=== PATIENT | male | born 1950 | race Caucasian/White ===

== ENCOUNTER 2020-01-08 08:15 | Inpatient (IN) | payer BC, MEDICARE, OTHER ==
[2020-01-08 08:47] LABS: #Eosinphils 0.1 thou/uL (0.0-0.7); #Lymphocytes 0.7 thou/uL (1.20-3.40); #Monocytes 0.4 thou/uL (0.11-0.59); #Neutrophils 5.6 thou/uL (1.40-6.50); %Basophils 0.1 % (0.0-1.0); %Eosinophils 1.4 % (0.0-10.0); %Lymphocytes 10.6 % (21.0-51.0); %Monocytes 6.3 % (0.0-10.0); %Neutrophils 81.6 % (42.0-75.0); Mean Corpuscular HGB CONC 34.4 g/dL (32.0-36.0); Mean Platelet Volume 8.4 fL (7.4-10.4); Platelet Count 138 thou/uL (130-400); RBC Distribution Width 11.5 % (11.5-14.5); Red Blood Cell (RBC) Count 4.84 mill/uL (4.70-6.10); White Blood Cell (WBC) Count 6.9 thou/uL (4.8-10.8)
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
[2020-01-08 09:08] LABS: ALT (SGPT) 14 U/L (8-55); AST (SGOT) 18 U/L (5-34); Albumin 4.2 g/dL (3.4-4.8); Alkaline Phosphatase 68 U/L (40-110); Anion Gap 12 mmol/L (10-20); BUN (Urea Nitrogen) 19 mg/dL (8.4-25.7); Bilirubin, Total 0.8 mg/dL (0.2-1.2); Calc. Creatinine Clearance 0 mL/min (70-130); Calcium 9.2 mg/dL (7.8-10.44); Carbon Dioxide 26 mmol/L (23-31); Chloride 105 mmol/L (98-107); Estimated GFR-MDRD 56; Globulin 2.9 g/dL (2.4-3.5); Glucose 141 mg/dL (80-115); Potassium 4.6 mmol/L (3.5-5.1); Protein, Total 7.1 g/dL (5.8-8.1); Sodium 138 mmol/L (136-145)
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
[2020-01-08] MEDS ORDERED: Aspirin Chewable 81 MG TAB ONE (10:17)
[2020-01-08] MEDS ORDERED: Boostrix 0.5 ML (Tdap) VIAL ONE (10:17)
[2020-01-08] MEDS ORDERED: Senokot S 8.6-50 MG TAB PO PRN (11:58)
[2020-01-08 13:42] LABS: Troponin I 0.014 ng/mL (< 0.028)
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
[2020-01-08] MEDS ORDERED: Iopamidol-370 76% 500 ML 1 ML ONE (13:57)
--- NOTE | 2020-01-08 15:41 | PDOC.EEG ---
Neurology EEG Report - Report Report: This EEG was performed using 24 channel Synthace video digital EEG machine with 24 disc electrodes. Background: The posterior background rhythm is 9-10 Hz. Bioccipital symmetric driving response seen with photic stimulation. Hyperventilation: Not performed. Sleep: Drowsiness and sleep are observed EEG diagnosis: Normal awake, drowsy and sleep EEG.
[2020-01-08 17:36] LABS: Troponin I 0.024 ng/mL (< 0.028)
[2020-01-08] MEDS ORDERED: Simvastatin 10 MG TAB PO SCH (21:00)
[2020-01-08] MEDS ORDERED: Tamsulosin HCl 0.4 MG CAP PO SCH (21:00)
[2020-01-08] MEDS ORDERED: Acetaminophen 325 MG TAB ONE (21:02)
[2020-01-08 21:31] LABS: Troponin I 0.017 ng/mL (< 0.028)
[2020-01-08 23:48] VITALS: BMI 29.0
[2020-01-09 04:17] LABS: #Eosinphils 0.2 thou/uL (0.0-0.7); #Lymphocytes 1.3 thou/uL (1.20-3.40); #Monocytes 0.7 thou/uL (0.11-0.59); #Neutrophils 5.2 thou/uL (1.40-6.50); %Basophils 0.1 % (0.0-1.0); %Eosinophils 2.1 % (0.0-10.0); %Lymphocytes 17.7 % (21.0-51.0); %Monocytes 9.1 % (0.0-10.0); %Neutrophils 71.1 % (42.0-75.0); Hemoglobin 14.8 g/dL (14.0-18.0); Mean Corpuscular HGB CONC 34.7 g/dL (32.0-36.0); Mean Corpuscular Volume 95.1 fL (78.0-98.0); Mean Platelet Volume 8.6 fL (7.4-10.4); Platelet Count 131 thou/uL (130-400); RBC Distribution Width 11.7 % (11.5-14.5); Red Blood Cell (RBC) Count 4.47 mill/uL (4.70-6.10); White Blood Cell (WBC) Count 7.4 thou/uL (4.8-10.8)
[2020-01-09 04:39] LABS: Anion Gap 11 mmol/L (10-20); BUN (Urea Nitrogen) 20 mg/dL (8.4-25.7); Calc. Creatinine Clearance 81 mL/min (70-130); Calcium 9.1 mg/dL (7.8-10.44); Carbon Dioxide 26 mmol/L (23-31); Chloride 104 mmol/L (98-107); Estimated GFR-MDRD 55; Glucose 109 mg/dL (80-115); Potassium 3.9 mmol/L (3.5-5.1); Sodium 137 mmol/L (136-145)
[2020-01-09] MEDS ORDERED: Aspirin 81 mg Enteric Coated Tablet PO SCH (09:00)
[2020-01-09] MEDS ORDERED: buPROPion 75 MG TAB PO SCH (09:00)
[2020-01-09] MEDS: Enoxaparin Sodium 40 MG/0.4 ML SYRINGE SC SCH (10:01)
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
[2020-01-09 13:55] LABS: SARS-CoV-2 MS2 Positive; SARS-CoV-2 N Gene Negative; SARS-CoV-2 S Gene Negative; SARS-CoV-2 by NAA Not Detected (NotDetected); SARS-CoV-2 orf1ab Negative
[2020-01-09] MEDS ORDERED: Communication Order-Pharmacy FS SCH (14:30)
[2020-01-09] MEDS ORDERED: Furosemide 20 MG TAB PO SCH (14:30)
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
[2020-01-09] MEDS: Atorvastatin Calcium 40 MG TAB PO SCH (19:50)
[2020-01-09] MEDS: Acetaminophen 325 MG TAB PO PRN (19:50)
[2020-01-10 04:45] LABS: Cardiac Risk 3.4 (Less than 4.5)
[2020-01-10] MEDS: Losartan 25 MG TAB PO SCH (08:52)
[2020-01-10] MEDS: Furosemide 20 MG TAB PO SCH (08:52)
[2020-01-10] MEDS: Aspirin 81 mg Enteric Coated Tablet PO SCH (08:52)
[2020-01-10] MEDS: Tamsulosin HCl 0.4 MG CAP PO SCH (08:52)
[2020-01-10] MEDS: buPROPion 75 MG TAB PO SCH (08:52)
[2020-01-10] MEDS: Enoxaparin Sodium 40 MG/0.4 ML SYRINGE SC SCH (08:53)
--- NOTE | 2020-01-10 12:31 | PDOC.HOSPP ---
- Subjective Encounter Date: 01/10/20 Encounter Time: 12:30 Subjective: Mr. Esparza was seen today in follow-up of syncope. Other than having some chest wall soreness, he feels fine. He denies chest pain or shortness of breath. - Objective Vital Signs & Weight: Vital Signs (12 hours) Temp Pulse Resp BP BP Pulse Ox 01/10/20 11:13 97.9 F 53 L 18 124/69 96 01/10/20 07:19 98.2 F 61 18 134/69 96 01/10/20 03:30 97.5 F L 53 L 18 144/77 H 95 Weight Weight 228 lb I&O: 01/09/20 01/10/20 01/11/20 06:59 06:59 06:59 Intake Total 480 120 Balance 480 120 Result Diagrams: 01/09/20 04:03 01/09/20 04:03 Hospitalist ROS - Medication Medications: Active Medications Generic Name Dose Route Start Last Admin Trade Name Freq PRN Reason Stop Dose Admin Acetaminophen 650 mg 01/08/20 11:58 01/09/20 19:50 Acetaminophen 325 Mg Tab PO 650 mg Q6H PRN Administration Headache/Fever/Mild Pain (1-3) Aspirin 81 mg 01/10/20 09:00 01/10/20 08:52 Aspirin 81 Mg Enteric Coated Tablet PO 81 mg DAILY SYLWIA Administration Atorvastatin Calcium 80 mg 01/09/20 21:00 01/09/20 19:50 Atorvastatin Calcium 40 Mg Tab PO 80 mg HS SYLWIA Administration Bupropion HCl 150 mg 01/10/20 09:00 01/10/20 08:52 Bupropion 75 Mg Tab PO 150 mg DAILY SYLWIA Administration Enoxaparin Sodium 40 mg 01/09/20 09:00 01/10/20 08:53 Enoxaparin Sodium 40 Mg/0.4 Ml Syringe SC 01/10/20 23:00 40 mg 0900 SYLWIA Administration Furosemide 20 mg 01/10/20 09:00 01/10/20 08:52 Furosemide 20 Mg Tab PO 20 mg DAILY SYLWIA Administration Losartan Potassium 50 mg 01/10/20 09:00 01/10/20 08:52 Losartan 25 Mg Tab PO 50 mg DAILY SYLWIA Administration Metoprolol Succinate 100 mg 01/10/20 09:00 01/10/20 08:53 Metoprolol Succinate Xl 100 Mg Tab PO 100 mg DAILY SYLWIA Administration Tamsulosin HCl 0.4 mg 01/10/20 09:00 01/10/20 08:52 Tamsulosin Hcl 0.4 Mg Cap PO 0.4 mg DAILY SYLWIA Administration - Exam Eye: PERRL, anicteric sclera Eye - other findings: + injected sclera Heart: RRR, no murmur, no gallops, no rubs, normal peripheral pulses Respiratory: CTAB, no wheezes, no rales, no ronchi, normal chest expansion, no tachypnea, normal percussion Gastrointestinal: soft, non-tender, non-distended, normal bowel sounds, no palpable masses, no hepatomegaly Extremities: no cyanosis, no edema Hosp A/P (1) Syncope Code(s): R55 - SYNCOPE AND COLLAPSE Status: Acute (2) CAD (coronary artery disease) Code(s): I25.10 - ATHSCL HEART DISEASE OF [place] CORONARY ARTERY W/O ANG PCTRS Status: Acute (3) Hypertension Code(s): I10 - ESSENTIAL (PRIMARY) HYPERTENSION Status: Chronic (4) Bradycardia Code(s): R00.1 - BRADYCARDIA, UNSPECIFIED Status: Chronic - Plan * Syncope- ? plan is for cardiac cath tomorrow * Continue to monitor on Telemetry * Probable undiagnosed sleep apnea- discussed with the patient- he needs to follow-up and have the out patient sleep study done * HTN- blood pressure is stable
[2020-01-10] MEDS: Acetaminophen 325 MG TAB PO PRN (20:22)
[2020-01-10] MEDS: Atorvastatin Calcium 40 MG TAB PO SCH (20:23)
[2020-01-11] MEDS ORDERED: Sodium Chloride 0.9% 1,000 ML IV SCH ×2 (06:00→12:07)
[2020-01-11] MEDS: Aspirin 81 mg Enteric Coated Tablet PO SCH (06:01)
[2020-01-11] MEDS: Furosemide 20 MG TAB PO SCH (06:02)
[2020-01-11] MEDS: Losartan 25 MG TAB PO SCH (06:02)
[2020-01-11] MEDS: buPROPion 75 MG TAB PO SCH (06:02)
[2020-01-11] MEDS: Tamsulosin HCl 0.4 MG CAP PO SCH (06:02)
[2020-01-11] MEDS: Acetaminophen 325 MG TAB PO PRN (06:07)
[2020-01-11] MEDS ORDERED: Iopamidol 370 76% 100 ML VIAL ONE (09:41)
[2020-01-11] MEDS ORDERED: Iopamidol 370 76% 50 ML VIAL FS ONE (09:41)
[2020-01-11] MEDS ORDERED: Heparin 0 ML ONE (10:13)
[2020-01-11] MEDS ORDERED: Heparin 10,000 UNITS/ 10 ML VIAL ONE (10:30)
[2020-01-11] MEDS ORDERED: Midazolam HCl 2 mg/2 ml Vial ONE (11:01)
[2020-01-11] MEDS ORDERED: Fentanyl 100 MCG/2 ML VIAL ONE (11:01)
[2020-01-11] MEDS ORDERED: Protamine Sulfate 50 MG/5 ML VIAL ONE (11:37)
[2020-01-11] MEDS ORDERED: Acetaminophen/Codeine 30-300mg Tablet PO PRN (12:07)
[2020-01-11] MEDS ORDERED: Sodium Chloride 0.9% 200 ML IV PRN (12:07)
[2020-01-11] MEDS ORDERED: Nitroglycerin 0.4 MG TAB (25 Tab Bottle) SL PRN (12:07)
[2020-01-11] MEDS: Acetaminophen/Codeine 30-300mg Tablet PO PRN ×2 (16:56→21:13)
[2020-01-11 18:23] LABS: #Eosinphils 0.2 thou/uL (0.0-0.7); #Lymphocytes 1.2 thou/uL (1.20-3.40); #Monocytes 0.6 thou/uL (0.11-0.59); #Neutrophils 3.6 thou/uL (1.40-6.50); %Basophils 0.2 % (0.0-1.0); %Lymphocytes 21.9 % (21.0-51.0); %Neutrophils 64.8 % (42.0-75.0); Hemoglobin 16.1 g/dL (14.0-18.0); Mean Corpuscular HGB CONC 34.5 g/dL (32.0-36.0); Mean Corpuscular Hemoglobin 32.6 pg (27.0-31.0); Mean Corpuscular Volume 94.6 fL (78.0-98.0); Mean Platelet Volume 8.4 fL (7.4-10.4); Platelet Count 170 thou/uL (130-400); RBC Distribution Width 11.6 % (11.5-14.5); Red Blood Cell (RBC) Count 4.96 mill/uL (4.70-6.10); White Blood Cell (WBC) Count 5.5 thou/uL (4.8-10.8)
[2020-01-11 19:05] LABS: Anion Gap 16 mmol/L (10-20); BUN (Urea Nitrogen) 20 mg/dL (8.4-25.7); Calc. Creatinine Clearance 75 mL/min (70-130); Calcium 9.5 mg/dL (7.8-10.44); Carbon Dioxide 26 mmol/L (23-31); Chloride 100 mmol/L (98-107); Estimated GFR-MDRD 52; Glucose 105 mg/dL (80-115); Sodium 138 mmol/L (136-145)
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
[2020-01-11] MEDS: Atorvastatin Calcium 40 MG TAB PO SCH (21:13)
[2020-01-12 05:01] LABS: Anion Gap 14 mmol/L (10-20); BUN (Urea Nitrogen) 24 mg/dL (8.4-25.7); Calc. Creatinine Clearance 85 mL/min (70-130); Calcium 9.2 mg/dL (7.8-10.44); Carbon Dioxide 23 mmol/L (23-31); Chloride 103 mmol/L (98-107); Estimated GFR-MDRD 60; Glucose 98 mg/dL (80-115); Sodium 136 mmol/L (136-145)
[2020-01-12] MEDS ORDERED: Propofol 1,000 MG/100 ML VIAL IV ONE (06:48)
[2020-01-12] MEDS ORDERED: Fentanyl 100 MCG/2 ML VIAL ONE ×2 (06:49→10:04)
--- NOTE | 2020-01-12 07:45 | PDOC.HOSPP ---
- Objective Vital Signs & Weight: Vital Signs (12 hours) Temp Pulse Resp BP Pulse Ox 01/12/20 07:02 98.1 F 56 L 18 121/63 93 L 01/12/20 03:02 98.4 F 53 L 16 143/66 H 95 Weight Weight 227 lb I&O: 01/11/20 01/12/20 01/13/20 06:59 06:59 06:59 Intake Total 1270 2140 Output Total 1000 1550 Balance 270 590 Result Diagrams: 01/11/20 18:11 01/12/20 04:09 Hospitalist ROS - Medication Medications: Active Medications Generic Name Dose Route Start Last Admin Trade Name Freq PRN Reason Stop Dose Admin Acetaminophen 650 mg 01/08/20 11:58 01/11/20 06:07 Acetaminophen 325 Mg Tab PO 650 mg Q6H PRN Administration Headache/Fever/Mild Pain (1-3) Acetaminophen/Codeine Phosphate 1 tab 01/11/20 12:07 01/11/20 21:13 Acetaminophen/Codeine 30-300mg Tablet PO 1 tab Q4H PRN Administration Mild Pain (1-3) Aspirin 81 mg 01/10/20 09:00 01/11/20 06:01 Aspirin 81 Mg Enteric Coated Tablet PO 81 mg DAILY SYLWIA Administration Atorvastatin Calcium 80 mg 01/09/20 21:00 01/11/20 21:13 Atorvastatin Calcium 40 Mg Tab PO 80 mg HS SYLWIA Administration Bupropion HCl 150 mg 01/10/20 09:00 01/11/20 06:02 Bupropion 75 Mg Tab PO 150 mg DAILY SYLWIA Administration Furosemide 20 mg 01/10/20 09:00 01/11/20 06:02 Furosemide 20 Mg Tab PO 20 mg DAILY SYLWIA Administration Metoprolol Succinate 100 mg 01/10/20 09:00 01/11/20 09:45 Metoprolol Succinate Xl 100 Mg Tab PO Not Given DAILY SYLWIA Sodium Chloride 10 ml 01/11/20 21:00 01/11/20 21:13 Flush - Normal Saline 10 Ml Syringe IVF 10 ml Q12HR SYLWIA Administration Tamsulosin HCl 0.4 mg 01/10/20 09:00 01/11/20 06:02 Tamsulosin Hcl 0.4 Mg Cap PO 0.4 mg DAILY SYLWIA Administration Hosp A/P (1) Syncope Code(s): R55 - SYNCOPE AND COLLAPSE Status: Acute (2) CAD (coronary artery disease) Code(s): I25.10 - ATHSCL HEART DISEASE OF [place] CORONARY ARTERY W/O ANG PCTRS Status: Acute (3) Hypertension Code(s): I10 - ESSENTIAL (PRIMARY) HYPERTENSION Status: Chronic (4) Bradycardia Code(s): R00.1 - BRADYCARDIA, UNSPECIFIED Status: Chronic - Plan * Syncope- ? plan is for cardiac cath tomorrow * Continue to monitor on Telemetry * Probable undiagnosed sleep apnea- discussed with the patient- he needs to follow-up and have the out patient sleep study done * HTN- blood pressure is stable
[2020-01-12] MEDS ORDERED: Ondansetron HCl/PF 4 MG/2 ML Vial IVP PRN (08:18)
[2020-01-12] MEDS ORDERED: Promethazine HCl 25 MG/ML VIAL SLOW IVP PRN (08:18)
[2020-01-12] MEDS ORDERED: Promethazine HCl 25 MG/ML VIAL IM PRN (08:18)
[2020-01-12] MEDS ORDERED: Gentamicin 80 MG/2 ML VIAL ONE (08:28)
[2020-01-12] MEDS ORDERED: CEFAZOLIN 1 GM VIAL ONE (08:28)
--- NOTE | 2020-01-12 10:40 | RAD ---
CHEST 1 VIEW: Date: 01/12/2020 INDICATION: ICD placement. COMPARISON: None. FINDINGS: Lungs are clear. Heart size is mildly enlarged. Pulmonary vasculature is within normal limits. There is a mitral annular prosthesis in place. There is a multilead AICD. No pleural effusion or pneumothor ax is evident. There is partial visualization of instrumentation involving the proximal left humerus. Scattered degenerative change. IMPRESSION: 1. No definite acute cardiopulmonary abnormality. 2. No pneumothorax. POS: BH
[2020-01-12] MEDS ORDERED: Lidocaine 1% PF 5 ML VIAL ONE (10:56)
[2020-01-12] MEDS ORDERED: PROPOFOL 200 MG/20 ML VIAL ONE (10:56)
[2020-01-12] MEDS: Aspirin 81 mg Enteric Coated Tablet PO SCH (11:08)
[2020-01-12] MEDS: buPROPion 75 MG TAB PO SCH (11:08)
[2020-01-12] MEDS: Tamsulosin HCl 0.4 MG CAP PO SCH (11:08)
[2020-01-12] MEDS: Furosemide 20 MG TAB PO SCH (11:08)
[2020-01-12 11:22] VITALS: BP 131/67; TEMP 97.3
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
--- NOTE | 2020-01-12 11:48 | PDOC.BPN ---
- Brief Progress Note Encounter Date: 01/12/20 Encounter Time: 11:46 OK for DC by EP 4 hrs post op. CXR-no pneumothorax. Please send with 7 days of Keflex 500mg PO QID. Will arrange for wound check in 2 wks as OP.
[2020-01-12] MEDS: Acetaminophen/Codeine 30-300mg Tablet PO PRN (12:23)
--- NOTE | 2020-01-12 12:50 | PDOC.HOSPP ---
- Subjective Encounter Date: 01/12/20 Encounter Time: 12:48 Subjective: Mr. Esparza was seen today in follow-up. He does not have any complaints. - Objective Vital Signs & Weight: Vital Signs (12 hours) Temp Pulse Resp BP Pulse Ox 01/12/20 11:15 97.3 F L 60 18 131/67 97 01/12/20 07:02 98.1 F 56 L 18 121/63 93 L 01/12/20 03:02 98.4 F 53 L 16 143/66 H 95 Weight Weight 227 lb I&O: 01/11/20 01/12/20 01/13/20 06:59 06:59 06:59 Intake Total 1270 2140 Output Total 1000 1550 Balance 270 590 Result Diagrams: 01/11/20 18:11 01/12/20 04:09 Hospitalist ROS - Medication Medications: Active Medications Generic Name Dose Route Start Last Admin Trade Name Freq PRN Reason Stop Dose Admin Acetaminophen 650 mg 01/08/20 11:58 01/11/20 06:07 Acetaminophen 325 Mg Tab PO 650 mg Q6H PRN Administration Headache/Fever/Mild Pain (1-3) Acetaminophen/Codeine Phosphate 1 tab 01/11/20 12:07 01/12/20 12:23 Acetaminophen/Codeine 30-300mg Tablet PO 1 tab Q4H PRN Administration Mild Pain (1-3) Aspirin 81 mg 01/10/20 09:00 01/12/20 11:08 Aspirin 81 Mg Enteric Coated Tablet PO 81 mg DAILY SYLWIA Administration Atorvastatin Calcium 80 mg 01/09/20 21:00 01/11/20 21:13 Atorvastatin Calcium 40 Mg Tab PO 80 mg HS SYLWIA Administration Bupropion HCl 150 mg 01/10/20 09:00 01/12/20 11:08 Bupropion 75 Mg Tab PO 150 mg DAILY SYLWIA Administration Cephalexin 500 mg 01/12/20 13:00 01/12/20 12:23 Cephalexin 250 Mg Cap PO 01/19/20 09:01 500 mg QID SYLWIA Administration Furosemide 20 mg 01/10/20 09:00 01/12/20 11:08 Furosemide 20 Mg Tab PO 20 mg DAILY SYLWIA Administration Metoprolol Succinate 100 mg 01/10/20 09:00 01/12/20 11:08 Metoprolol Succinate Xl 100 Mg Tab PO 100 mg DAILY SYLWIA Administration Sacubitril/Valsartan 1 tab 01/12/20 09:00 01/12/20 11:08 Sacubitril 24mg/Valsartan 26mg Tab PO 1 tab BID SYLWIA Administration Senna/Docusate Sodium 2 tab 01/08/20 11:58 01/12/20 11:08 Senokot S 8.6-50 Mg Tab PO 2 tab BIDPRN PRN Administration Constipation Sodium Chloride 10 ml 01/11/20 21:00 01/12/20 11:32 Flush - Normal Saline 10 Ml Syringe IVF Not Given Q12HR SYLWIA Tamsulosin HCl 0.4 mg 01/10/20 09:00 01/12/20 11:08 Tamsulosin Hcl 0.4 Mg Cap PO 0.4 mg DAILY SYLWIA Administration - Exam Eye: PERRL, anicteric sclera Heart: RRR, no murmur, no gallops, no rubs, normal peripheral pulses Respiratory: CTAB, no wheezes, no rales, no ronchi, normal chest expansion, no tachypnea, normal percussion Gastrointestinal: soft, non-tender, non-distended, normal bowel sounds, no palpable masses, no hepatomegaly Extremities: no cyanosis, no edema Hosp A/P (1) Syncope Code(s): R55 - SYNCOPE AND COLLAPSE Status: Acute (2) CAD (coronary artery disease) Code(s): I25.10 - ATHSCL HEART DISEASE OF [place] CORONARY ARTERY W/O ANG PCTRS Status: Acute (3) Hypertension Code(s): I10 - ESSENTIAL (PRIMARY) HYPERTENSION Status: Chronic (4) Bradycardia Code(s): R00.1 - BRADYCARDIA, UNSPECIFIED Status: Chronic - Plan * Syncope- He is s/p Defibrillator placement * Clinically stable * He can be discharged home today, with close outpatient follow-up with Cardiology, Outpatient Sleep study
[2020-01-12] MEDS ORDERED: Cephalexin 250 MG CAP PO SCH (13:00)
--- NOTE | 2020-01-12 18:15 | PDOC.DS.DS ---
Provider - Provider Date of Admission: 01/09/20 17:27 Date of Discharge: 01/12/20 Admitting Provider: Tracee Valdivia MD Consultations: Cardiology, Other (EP- Cardiology) Primary Care Physician: Valentin Doyle MD Course - Hospital Course Hospital Course: Mr. Loredo is a 69-year-old gentleman with a history of hypertension coronary artery disease status post bypass who presented to the hospital after experiencing a syncopal episode. The full details are outlined in the history and physical. He was evaluated in the emergency room. CT scan of the brain as well as CT scan of the cervical spine was done which did not show any significant evidence of trauma. There was no bleed on the CT scan of the brain. CT scan of the cervical spine showed only mild spondylosis. He was evaluated by cardiology due to concern that this could be a cardiac event. He had an echocardiogram done which showed an ejection fraction of 30 to 35%. This was lo wer than what he remembered his prior facilities custodian telling him. He underwent cardiac catheterization in which the grafts to his bypass were patent. However with the low ejection fraction it was there was concern that he may have suffered an arrhythmia which caused the syncopal episode. For this reason the plastic injection mold maker was consulted. He underwent defibrillator placement. And following this procedure he was able to be discharged home. He also has a history of possible sleep apnea which has never been treated. He was strongly urged to follow-up with an outpatient sleep study once he is discharged. Procedures: CT scan of the Brain CT scan of the C-Spine Echocardiogram Cardiac Cath Defibrillator placement Resuscitation Status: 01/08/20 11:58 Resuscitation Status Routine Resuscitation Status: FULL: Full Resuscitation - Labs Lab Results: 01/11/20 18:11 01/12/20 04:09 Abnormal Lab Results - Last 48 hrs 01/11/20 18:11: Creatinine 1.36 H 01/11/20 18:11: MCH 32.6 H, Monocytes # 0.6 H - Physical Exam Vitals: Vital Signs (12 hours) Temp Pulse Resp BP Pulse Ox 01/12/20 11:15 97.3 F L 60 18 131/67 97 01/12/20 07:02 98.1 F 56 L 18 121/63 93 L Weight Weight 227 lb Physical Exam: The patient was seen and examined on the day of discharge. Problem - Problem (1) Syncope Code(s): R55 - SYNCOPE AND COLLAPSE Status: Acute (2) CAD (coronary artery disease) Code(s): I25.10 - ATHSCL HEART DISEASE OF [place] CORONARY ARTERY W/O ANG PCTRS Status: Acute (3) Hypertension Code(s): I10 - ESSENTIAL (PRIMARY) HYPERTENSION Status: Chronic (4) Bradycardia Code(s): R00.1 - BRADYCARDIA, UNSPECIFIED Status: Chronic Plan - Discharge Medications Prescriptions: Sacubitril/Valsartan [Entresto 24 mg-26 mg Tablet] 1 tab PO BID #60 tab Cephalexin [Keflex] 500 mg PO Q12H #14 cap Furosemide [Lasix] 20 mg PO DAILY #30 tab Home Medications: Medication Instructions Recorded Confirmed Type Aspirin [Ecotrin] 81 mg PO DAILY 01/08/20 01/08/20 History Atorvastatin Calcium 80 mg PO DAILY 01/08/20 01/08/20 History Metoprolol Succinate 100 mg PO DAILY 01/08/20 01/08/20 History Omeprazole 40 mg PO DAILY 01/08/20 01/08/20 History Tamsulosin HCl [Flomax] 0.4 mg PO DAILY 01/08/20 01/08/20 History buPROPion [Wellbutrin] 150 mg PO DAILY 01/08/20 01/08/20 History Cephalexin [Keflex] 500 mg PO Q12H #14 cap 01/12/20 Rx Furosemide [Lasix] 20 mg PO DAILY #30 tab 01/12/20 Rx Sacubitril/Valsartan [Entresto 24 1 tab PO BID #60 tab 01/12/20 Rx mg-26 mg Tablet] Allergies: No Known Allergies Allergy (Unverified 01/08/20 12:00) - Discharge Instructions Activity:: Activity as Tolerated Nourishment:: Heart Healthy Diet - Follow up Plan Referrals: Cardiac Rehab - [facility] [Outside] - 7 Days (Your doctor has ordered outpatient cardiac rehab for you to begin within 1-2 weeks after you go home from the hospital. The location nearest to you is the [facility]. We will call you in 3-5 days to get you scheduled for your evaluation. If you do not receive a call, please reach out to us at [phone] and request an appointment.) Valentin Doyle MD [Primary Care Provider] - 7 Days (Please call to make an appointment. ) Rom Wallis MD [Circuit Court Magistrate] - (2 week wound/device check [phone]) Disposition: HOME Quality - Care Measures CORE MEASURES:: N/A
== END 2020-01-12 14:06 | disposition home or self-care (01) | DRG 225 ==
LOC: ERS 08:15 → ERHOLD 11:08 → 2NO 22:06 → OBSVTOIN 01-09 17:27
PROVIDERS: ADMIT Internal Medicine; ATTEND Internal Medicine
PROC: 3E0234Z Introduction of Serum, Toxoid and Vaccine into Muscle, Percutaneous Approach (ICD-10-PCS; 2020-01-09)
PROC: 4A023N7 Measurement of Cardiac Sampling and Pressure, Left Heart, Percutaneous Approach (ICD-10-PCS; 2020-01-11)
PROC: B2111ZZ Fluoroscopy of Multiple Coronary Arteries using Low Osmolar Contrast (ICD-10-PCS; 2020-01-11)
PROC: B2181ZZ Fluoroscopy of Left Internal Mammary Bypass Graft using Low Osmolar Contrast (ICD-10-PCS; 2020-01-11)
PROC: B2151ZZ Fluoroscopy of Left Heart using Low Osmolar Contrast (ICD-10-PCS; 2020-01-11)
PROC: B2131ZZ Fluoroscopy of Multiple Coronary Artery Bypass Grafts using Low Osmolar Contrast (ICD-10-PCS; 2020-01-11)
PROC: 0JH608Z Insertion of Defibrillator Generator into Chest Subcutaneous Tissue and Fascia, Open Approach (ICD-10-PCS; principal; 2020-01-12)
PROC: 02HK3KZ Insertion of Defibrillator Lead into Right Ventricle, Percutaneous Approach (ICD-10-PCS; 2020-01-12)
PROC: 02H63KZ Insertion of Defibrillator Lead into Right Atrium, Percutaneous Approach (ICD-10-PCS; 2020-01-12)
PROC: 4A023FZ Measurement of Cardiac Rhythm, Percutaneous Approach (ICD-10-PCS; 2020-01-12)
PROC: 4A0234Z Measurement of Cardiac Electrical Activity, Percutaneous Approach (ICD-10-PCS; 2020-01-12)
PROC: 02K83ZZ Map Conduction Mechanism, Percutaneous Approach (ICD-10-PCS; 2020-01-12)
DX: I47.2 Ventricular tachycardia (principal); M48.54XA Collapsed vertebra, not elsewhere classified, thoracic region, initial encounter for fracture; M48.56XA Collapsed vertebra, not elsewhere classified, lumbar region, initial encounter for fracture; R00.1 Bradycardia, unspecified; Z20.828 Contact with and (suspected) exposure to other viral communicable diseases; I10 Essential (primary) hypertension; I25.10 Atherosclerotic heart disease of native coronary artery without angina pectoris; E78.5 Hyperlipidemia, unspecified; N40.0 Benign prostatic hyperplasia without lower urinary tract symptoms; G47.33 Obstructive sleep apnea (adult) (pediatric); I25.5 Ischemic cardiomyopathy; E78.00 Pure hypercholesterolemia, unspecified; I49.01 Ventricular fibrillation; I48.0 Paroxysmal atrial fibrillation; M47.812 Spondylosis without myelopathy or radiculopathy, cervical region; Z23 Encounter for immunization; Z95.1 Presence of aortocoronary bypass graft; Z79.899 Other long term (current) drug therapy; Z79.82 Long term (current) use of aspirin; Z98.41 Cataract extraction status, right eye; Z87.891 Personal history of nicotine dependence
CPT/HCPCS: 33249; 36415; 70450; 71045; 71260; 72125; 74177; 76942; 80048; 80053; 80061; 84443; 84484; 85025; 85347; 87635; 90471; 90715; 93005; 93306; 93459; 93620; 93641; 95816; 95819; 96372; 99152; C1721; C1730; C1777; C1898; G0378; J0690; J1580; J1644; J1650; J2250; J2704; J2720; J3010; Q9967; U0003

== ENCOUNTER 2021-11-14 14:36 | Outpatient (CLI) | payer MEDICARE | END 2021-11-14 14:37 | disposition home or self-care (01) | LOC: LABBT 14:36 | PROVIDERS: ATTEND Specialist | DX: Z20.822 Contact with and (suspected) exposure to COVID-19 (principal) | CPT/HCPCS: 87811 ==

== ENCOUNTER 2021-11-17 08:42 | Day surgery (SDC) | payer MEDICARE ==
[2021-11-13 13:10] VITALS: BMI 28.7
[2021-11-17 09:12] LABS: PTT 30.6 sec (22.9-36.1); Prothrombin Time 13.8 sec (12.0-14.7)
[2021-11-17 09:36] VITALS: BP 118/79; TEMP 97.4
== END 2021-11-17 11:00 | disposition home or self-care (01) ==
LOC: CT 08:42
PROVIDERS: ATTEND Specialist
DX: K76.9 Liver disease, unspecified (principal)
CPT/HCPCS: 36415; 76380; 85610; 85730

== ENCOUNTER 2021-11-21 10:51 | Day surgery (SDC) | payer MEDICARE, OTHER ==
[2021-11-20 15:50] VITALS: BMI 27.6
[~2021-11-21 10:51] MED LIST: Fentanyl 100 MCG/2 ML VIAL ONE; Midazolam HCl 2 mg/2 ml Vial ONE; Sodium Bicarbonate 2.5 MEQ/5 ML VIAL ONE
[2021-11-21] MEDS ORDERED: Lidocaine 1% MPF 2 ML VIAL ONE (11:20)
[2021-11-21] MEDS ORDERED: PROPOFOL 200 MG/20 ML VIAL ONE (11:20)
== END 2021-11-21 13:40 | disposition home or self-care (01) ==
LOC: SDC 10:51
PROVIDERS: ATTEND Internal Medicine Gastroenterology
PROC: 0DJ08ZZ Inspection of Upper Intestinal Tract, Via Natural or Artificial Opening Endoscopic (ICD-10-PCS; principal; 2021-11-21)
PROC: 0DBN8ZX Excision of Sigmoid Colon, Via Natural or Artificial Opening Endoscopic, Diagnostic (ICD-10-PCS; 2021-11-21)
DX: D12.5 Benign neoplasm of sigmoid colon (principal); K63.89 Other specified diseases of intestine; R16.0 Hepatomegaly, not elsewhere classified; I89.9 Noninfective disorder of lymphatic vessels and lymph nodes, unspecified; K21.9 Gastro-esophageal reflux disease without esophagitis; I25.10 Atherosclerotic heart disease of native coronary artery without angina pectoris; I25.2 Old myocardial infarction; I10 Essential (primary) hypertension; Z87.891 Personal history of nicotine dependence; Z79.02 Long term (current) use of antithrombotics/antiplatelets; Z79.82 Long term (current) use of aspirin; Z79.899 Other long term (current) drug therapy; Z95.1 Presence of aortocoronary bypass graft; Z95.810 Presence of automatic (implantable) cardiac defibrillator
CPT/HCPCS: 88305; J2704

== ENCOUNTER 2022-10-02 23:21 | Inpatient (IN) | payer BC, MEDICARE ==
[2022-10-03 00:20] LABS: #Eosinphils 0.2 thou/uL (0.0-0.7); #Monocytes 0.9 thou/uL (0.11-0.59); #Neutrophils 10.7 thou/uL (1.40-6.50); %Basophils 0.1 % (0.0-1.0); %Eosinophils 1.6 % (0.0-10.0); %Lymphocytes 13.5 % (21.0-51.0); %Monocytes 6.4 % (0.0-10.0); Hemoglobin 12.6 g/dL (14.0-18.0); Mean Corpuscular HGB CONC 33.6 g/dL (32.0-36.0); Mean Corpuscular Hemoglobin 32.6 pg (27.0-31.0); Mean Corpuscular Volume 97.2 fl (78.0-98.0); Mean Platelet Volume 10.5 fL (7.4-10.4); Platelet Count 157 10x3/uL (130-400); RBC Distribution Width 16.7 % (11.5-14.5); Red Blood Cell (RBC) Count 3.86 mill/uL (4.70-6.10); White Blood Cell (WBC) Count 13.7 10x3/uL (4.8-10.8)
[2022-10-03] MEDS ORDERED: Morphine 4 MG/ML VIAL ONE ×2 (00:29→01:48)
[2022-10-03] MEDS ORDERED: Ondansetron PF 4 MG/2 ML Vial ONE (00:30)
[2022-10-03 00:48] LABS: ALT (SGPT) 16 U/L (8-55); AST (SGOT) 18 U/L (5-34); Albumin 4.1 g/dL (3.4-4.8); Alkaline Phosphatase 70 U/L (40-110); Anion Gap 11 mmol/L (10-20); BUN (Urea Nitrogen) 29 mg/dL (8.4-25.7); Bilirubin, Total 0.7 mg/dL (0.2-1.2); Calc. Creatinine Clearance 0 mL/min (70-130); Calcium 9.3 mg/dL (7.8-10.44); Carbon Dioxide 25 mmol/L (23-31); Chloride 106 mmol/L (98-107); Estimated GFR 22; Globulin 3.1 g/dL (2.4-3.5); Glucose 126 mg/dL (83-110); Lipase 42 U/L (8-78); Potassium 4.1 mmol/L (3.5-5.1); Protein, Total 7.2 g/dL (5.8-8.1); Sodium 138 mmol/L (136-145)
[2022-10-03 00:52] LABS: INR-International Normal Ratio 2.5; PTT 40.3 sec (22.9-36.1); Prothrombin Time 27.7 sec (12.0-14.7)
[2022-10-03] MEDS ORDERED: Piperacillin/Tazobactam 4.5 GM VIAL ONE (01:41)
[2022-10-03] MEDS ORDERED: fentaNYL 50 mcg/mL 1 mL Vial ONE ×2 (02:49→03:35)
[2022-10-03] MEDS ORDERED: HYDROmorphone 0.5 MG/0.5 ML SYRINGE ONE (04:55)
[2022-10-03] MEDS ORDERED: Naloxone HCl 0.4 mg/ml Vial IV PRN (04:59)
[2022-10-03] MEDS ORDERED: FENTANYL 500 MCG/10 ML VIAL 2,000 MCG in Sodium Chloride 0.9% 60 ML IV PRN (04:59)
[2022-10-03] MEDS ORDERED: diphenhydrAMINE 50 MG/ML VIAL IM PRN (04:59)
[2022-10-03] MEDS ORDERED: Zolpidem Tartrate 5 MG TAB PO PRN (04:59)
[2022-10-03] MEDS ORDERED: Ondansetron PF 4 MG/2 ML Vial IVP PRN (04:59)
[2022-10-03] MEDS ORDERED: diphenhydrAMINE 25 MG CAP PO PRN (04:59)
[2022-10-03] MEDS ORDERED: Promethazine HCl 25 MG/ML VIAL IM PRN (04:59)
[2022-10-03] MEDS ORDERED: diphenhydrAMINE 50 MG/ML VIAL IVP PRN (04:59)
[2022-10-03] MEDS ORDERED: ADMIXTURE FEE IV SCH (05:00)
[2022-10-03] MEDS ORDERED: HUMAN PROTHROMBIN COMPLX IV SCH (05:00)
[2022-10-03] MEDS ORDERED: Communication Order-Pharmacy FS SCH (05:00)
[2022-10-03] MEDS ORDERED: Piperacillin/Tazobactam 3.375 GM VIAL ONE (06:22)
[2022-10-03 06:49] LABS: Lactic Acid 2.5 mmol/L (0.5-2.2)
[2022-10-03 08:29] VITALS: BMI 27.5
[2022-10-03] MEDS ORDERED: Iopamidol-370 76% 500 ML MDV (1 ML CHARGE) ONE (08:44)
[2022-10-03] MEDS ORDERED: Lactated Ringer's 1,000 ML IV SCH (10:30)
[2022-10-03] MEDS ORDERED: Morphine 4 MG/ML VIAL SLOW IVP SCH (19:15)
[2022-10-03 20:13] VITALS: BP 115/68; TEMP 99
== END 2022-10-03 20:55 | disposition home or self-care (01) | DRG 394 ==
LOC: ERS 23:21 → ERHOLD 10-03 03:31 → SURG A 10-03 03:57 → ERHOLD 10-03 08:16 → SURG A 10-03 09:50
PROVIDERS: ADMIT Specialist; ATTEND Specialist
DX: K35.80 Unspecified acute appendicitis (principal); C16.9 Malignant neoplasm of stomach, unspecified; C78.00 Secondary malignant neoplasm of unspecified lung; C78.7 Secondary malignant neoplasm of liver and intrahepatic bile duct; N40.0 Benign prostatic hyperplasia without lower urinary tract symptoms; E78.5 Hyperlipidemia, unspecified; F17.210 Nicotine dependence, cigarettes, uncomplicated; I10 Essential (primary) hypertension; Z95.0 Presence of cardiac pacemaker; Z95.1 Presence of aortocoronary bypass graft; Z79.899 Other long term (current) drug therapy; Z79.82 Long term (current) use of aspirin; Z88.8 Allergy status to other drugs, medicaments and biological substances; Z98.41 Cataract extraction status, right eye
CPT/HCPCS: 36415; 74176; 74177; 80053; 83605; 83690; 84484; 85025; 85610; 85730; 87040; 93005; J1170; J2270; J2405; J2543; J3010; J3490; J7120; J7168; Q9967

== ENCOUNTER 2022-12-13 14:18 | Outpatient (CLI) | payer BC, MEDICARE ==
[2022-12-13 15:14] LABS: #Eosinphils 0.2 10x3/uL (0.0-0.5); #Monocytes 0.4 10x3/uL (0.0-1.1); #Neutrophils 3.1 10x3/uL (1.5-8.4); %Basophils 0.2 % (0.0-2.0); %Eosinophils 3.5 % (0.0-6.0); %Lymphocytes 23.2 % (18.0-47.0); %Neutrophils 63.9 % (40.0-75.0); Hematocrit 35.1 % (38.8-50.0); Hemoglobin 11.8 g/dL (13.5-17.5); Mean Corpuscular HGB CONC 33.6 g/dL (32.0-36.0); Mean Corpuscular Hemoglobin 32.5 pg (27.0-33.0); Mean Corpuscular Volume 96.7 fl (81.2-95.1); Mean Platelet Volume 10.1 fl (7.4-10.4); Platelet Count 154 10x3/uL (150-450); RBC Distribution Width 16.5 % (11.5-14.5); Red Blood Cell (RBC) Count 3.63 10x6/uL (4.32-5.72); White Blood Cell (WBC) Count 4.9 10x3/uL (3.5-10.5)
[2022-12-13 15:29] LABS: ALT (SGPT) 16 U/L (8-55); AST (SGOT) 17 U/L (5-34); Albumin 4.3 g/dL (3.4-4.8); Alkaline Phosphatase 74 U/L (40-110); Anion Gap 13 mmol/L (10-20); BUN (Urea Nitrogen) 24 mg/dL (8.4-25.7); Bilirubin, Total 0.7 mg/dL (0.2-1.2); Calc. Creatinine Clearance 0 mL/min (70-130); Calcium 9.1 mg/dL (7.8-10.44); Carbon Dioxide 24 mmol/L (23-31); Chloride 107 mmol/L (98-107); Estimated GFR 48; Globulin 2.3 g/dL (2.4-3.5); Glucose 94 mg/dL (83-110); Potassium 3.7 mmol/L (3.5-5.1); Protein, Total 6.6 g/dL (5.8-8.1); Sodium 140 mmol/L (136-145)
== END 2022-12-13 14:19 | disposition home or self-care (01) ==
LOC: LABBT 14:18
PROVIDERS: ATTEND Internal Medicine Cardiovascular Disease
DX: Z01.818 Encounter for other preprocedural examination (principal)
CPT/HCPCS: 80053; 85025; 93005; 93010

== ENCOUNTER 2022-12-17 06:11 | Day surgery (SDC) | payer BC, MEDICARE ==
[2022-12-13 14:41] VITALS: BMI 27.5
[2022-12-17] MEDS ORDERED: Midazolam HCl 2 mg/2 ml Vial ONE (06:20)
[2022-12-17] MEDS ORDERED: fentaNYL 50 mcg/mL 1 mL Vial ONE (06:20)
[2022-12-17] MEDS ORDERED: Heparin 10,000 UNITS/ 10 ML VIAL ONE (06:21)
[2022-12-17] MEDS ORDERED: Lidocaine 1% (PF) 30 ML VIAL ONE (06:21)
[2022-12-17 07:23] LABS: Cardiac Risk 3.1 (Less than 4.5)
[2022-12-17] MEDS ORDERED: Protamine Sulfate 50 MG/5 ML VIAL ONE (08:26)
[2022-12-17] MEDS ORDERED: Iopamidol 370 76% 100 ML VIAL ONE (09:09)
== END 2022-12-17 15:05 | disposition home or self-care (01) ==
LOC: SDC 06:11
PROVIDERS: ATTEND Internal Medicine Cardiovascular Disease
PROC: 4A023N7 Measurement of Cardiac Sampling and Pressure, Left Heart, Percutaneous Approach (ICD-10-PCS; principal; 2022-12-17)
DX: R94.39 Abnormal result of other cardiovascular function study (principal); I25.10 Atherosclerotic heart disease of native coronary artery without angina pectoris; I25.5 Ischemic cardiomyopathy; I87.2 Venous insufficiency (chronic) (peripheral); C79.9 Secondary malignant neoplasm of unspecified site; I82.502 Chronic embolism and thrombosis of unspecified deep veins of left lower extremity; I83.813 Varicose veins of bilateral lower extremities with pain; I27.82 Chronic pulmonary embolism; G47.33 Obstructive sleep apnea (adult) (pediatric); I73.9 Peripheral vascular disease, unspecified; E78.00 Pure hypercholesterolemia, unspecified; I95.1 Orthostatic hypotension; I10 Essential (primary) hypertension; Z95.1 Presence of aortocoronary bypass graft; Z82.49 Family history of ischemic heart disease and other diseases of the circulatory system; Z95.810 Presence of automatic (implantable) cardiac defibrillator; Z87.891 Personal history of nicotine dependence; Z79.899 Other long term (current) drug therapy
CPT/HCPCS: 80061; 85347; 93459; 99152; 99153; C1769; J1644; J2001; J2250; J2720; J3010